=== PATIENT | male | born 1970 | race Caucasian/White ===

== ENCOUNTER 2019-08-21 22:13 | Emergency (ER) | payer OTHER ==
[2019-08-21] MEDS ORDERED: LIDOCAINE 1% INJ 10MG/ML (20 ML MDV) SQ ONE (23:21)
--- NOTE | 2019-08-21 23:27 | ED ---
Wound/Laceration HPI - General Chief Complaint: Wound/Laceration Stated Complaint: Thumb Lac Time Seen by Provider: 08/21/19 23:16 Source: patient, RN notes reviewed Mode of arrival: ambulatory Limitations: no limitations - History of Present Illness Initial Comments: this a 48-year-old male presents emergency Department chief complaint of left thumb partial amputation. Patient states that yesterday he was shooting Tiffanie Ryder states that he stuck his thumb up in the way. Patient states that he is missing the distal tip of his left thumb. He was seen at [facility] yesterday. patient states that he had x-rays, given antibiotics. Patient states that he is scheduled see orthopedics tomorrow. Patient states days had a slight continues bleed and he is concerned about it. - Related Data Home Medications Medication Instructions Recorded Confirmed Cephalexin [Keflex] 500 mg PO Q6H 08/21/19 08/21/19 HYDROcodone/APAP 5-325MG [[place] 1 tab PO Q4HR PRN 08/21/19 08/21/19 5-325] Ibuprofen [Motrin Ib] 400 mg PO Q6H PRN 08/21/19 08/21/19 Allergies Allergy/AdvReac Type Severity Reaction Status Date / Time No Known Allergies Allergy Verified 08/21/19 23:33 Review of Systems ROS Statement: Those systems with pertinent positive or pertinent negative responses have been documented in the HPI. ROS Other: All systems not noted in ROS Statement are negative. Past Medical History Past Medical History: GERD/Reflux History of Any Multi-Drug Resistant Organisms: None Reported Past Surgical History: Hernia Repair Past Psychological History: No Psychological Hx Reported Smoking Status: Current every day smoker Past Alcohol Use History: None Reported Past Drug Use History: None Reported General Exam Limitations: no limitations General appearance: alert, in no apparent distress Head exam: Present: atraumatic, normocephalic, normal inspection Eye exam: Present: normal appearance, PERRL, EOMI. Absent: scleral icterus, conjunctival injection, periorbital swelling Respiratory exam: Present: normal lung sounds bilaterally. Absent: respiratory distress, wheezes, rales, rhonchi, stridor Cardiovascular Exam: Present: regular rate, normal rhythm, normal heart sounds. Absent: systolic murmur, diastolic murmur, rubs, gallop, clicks Extremities exam: Present: other Skin exam: Present: warm, dry Course Vital Signs 08/21/19 22:17 Temperature 98.4 F Pulse Rate 97 Respiratory 20 Rate Blood Pressure 172/97 O2 Sat by Pulse 96 Oximetry Procedures - Procedures Initial comment: digital block left thumb 10 mL of lidocaine without epinephrine were used, dressing was removed, there is no active bleeding area was cleaned, Vaseline gauze, sterile gauze were applied, tube gauze applied over patient will be discharged Medical Decision Making - Medical Decision Making the wound was visualized, there is a partial amputation, no active bleeding no signs of infection. Dressing was changed and will follow-up with orthopedics tomorrow at scheduled appointment. Disposition Clinical Impression: Partial traumatic transphalangeal amputation of left thumb Disposition: HOME SELF-CARE Condition: Stable Instructions (If sedation given, give patient instructions): Finger Amputation (ED) Additional Instructions: Please return to the Emergency Department if symptoms worsen or any other concerns. Is patient prescribed a controlled substance at d/c from ED?: No Referrals: Kenrick Long MD [Primary Care Provider] - 1-2 days Kirk Roberto DO [Doctor of Osteopathic Medicine] - 1-2 days Time of Disposition: 00:02
[2019-08-22 00:27] VITALS: BP 162/108; PULSE 76; RESP 18; TEMP 98.5
== END 2019-08-22 00:27 | disposition home or self-care (01) ==
LOC: EC 22:13
DX: S68.522A Partial traumatic transphalangeal amputation of left thumb, initial encounter (principal); K21.9 Gastro-esophageal reflux disease without esophagitis; F17.200 Nicotine dependence, unspecified, uncomplicated; X58.XXXA Exposure to other specified factors, initial encounter; Y92.89 Other specified places as the place of occurrence of the external cause
CPT/HCPCS: 99282; 64450; J2001

== ENCOUNTER 2019-08-28 07:58 | Day surgery (SDC) | payer BC ==
[2019-08-27 10:28] VITALS: BMI 33.9
[~2019-08-28 07:58] MED LIST: DEXAMETHASONE SOD PHOSPHATE 10 MG/ML 1 ML VIAL IV ONE; HYDROmorphone 0.5 MG/0.5 ML SYRINGE IVP PRN; LACTATED RINGERS 1,000 ML IV SCH; LIDOCAINE 1% 20 ML VIAL (10MG/ML) FOR IV START INTRADERMA PRN; MIDAZOLAM 2 MG/2 ML VIAL IV PRN; ONDANSETRON 4 MG/2 ML VIAL IVP ONE; SCOPOLAMINE 1.5MG/72HR PATCH TRANSDERM ONE
[2019-08-28 08:23] VITALS: RESP 16; TEMP 97.5
[2019-08-28] MEDS ORDERED: MIDAZOLAM 2 MG/2 ML VIAL IV ONE (08:38)
--- NOTE | 2019-08-28 09:10 | P.ANPRN ---
Procedure Note - Anesthesia - Nerve Block Performed Left Supraclavicular Single Time Out Performed: Yes Date of Procedure: 08/28/19 Procedure Start Time: 08:37 Procedure Stop Time: 08:47 Location of Patient Procedure: PreOp Indication: Acute Post-Operative Pain, Requested by Surgeon Sedation Type: Sedate with meaningful contact maintained Preparation: Sterile Prep Position: Sitting Catheter: None Needle Types: Pajunk Ultrasound used to visualize needle placement: Yes Ultrasound used to observe medication spread: Yes Injectate: 0.5% Ropivacaine (see comment for volume) (20ml + decadron 4mg) Blood Aspirated: No Pain Paresthesia on Injection Noted: No Resistance on Injection: Normal Image Stored and Saved: Yes Events: Uneventful and Well Tolerated
[2019-08-28] MEDS ORDERED: BUPIVACAINE (PF) 0.5% 30 ML VIAL SQ ONE ×3 (10:26)
[2019-08-28] MEDS ORDERED: LIDOCAINE 1% INJ 10MG/ML (20 ML MDV) SQ ONE ×3 (10:26)
[2019-08-28] MEDS ORDERED: LACTATED RINGERS 1,000 ML IV ONE (11:58)
[2019-08-28] MEDS ORDERED: LIDOCAINE 1%-EPI 1:100,000 20 ML VIAL SQ ONE ×2 (12:56)
[2019-08-28 14:21] VITALS: BP 110/75; PULSE 95
--- NOTE | 2019-09-05 20:22 | P.OP ---
Date of Procedure: 08/28/19 Preoperative Diagnosis: 1. Traumatic transphalangeal amputation of the left thumb. Postoperative Diagnosis: 1. Traumatic transphalangeal amputation of the left thumb. 2. Intra-articular fracture of the radial condyle of the left thumb distal phalanx. Procedure(s) Performed: 1. Irrigation and debridement of traumatic amputation of the left thumb 2. Repair of left thumb interphalangeal joint radial collateral ligament / radial condyle fracture 3. Nailbed ablation - left thumb 4. Wound closure with first dorsal metacarpal artery flap 5. Full-thickness skin grafting of the donor site. Anesthesia: GETA (general), regional, local Surgeon: Devonte Zhang Buckle Attacher #1: Suzy Thompson Estimated Blood Loss (ml): 30 Condition: stable Disposition: PACU Indications for Procedure: The patient is a 48-year-old [id number] male who sustained a traumatic amputation to his left thumb at the level of the distal phalanx, secondary to an injury with his crossbow. Treatment options (and associated risks and benefits) were discussed in the office. Operative treatment was recommended, in the form of irrigation and debridement with flap coverage. I specifically discussed the risk of flap failure/necrosis (increased his case, being a current smoker) as well as infection and delayed wound healing. The patient expressed understanding, acceptance of these risks and wished to proceed with surgery. In preop, the patient denied any additional questions or concerns. Consent forms were signed. The operative site was confirmed and marked. Description of Procedure: The patient was administered a regional nerve block by the anesthesia team and then was brought to the operating suite and positioned supine with the operative limb on a hand table. All bony prominences were well-padded. Anesthesia was administered uneventfully. Prophylactic IV antibiotics were administered. A tourniquet was placed on the operative arm but was not initially inflated. The left upper extremity was then prepped and draped in standard, sterile fashion. A timeout was performed, confirming patient identifiers, the operative side, the site and the procedures to be performed: all team members expressed agreement. The course of the first dorsal metacarpal artery was identified by Doppler and marked on the skin. The island skin flap was outlined on the dorsal aspect of the index finger proximal phalanx. A lazy S-shaped incision was drawn along the course of the vascular pedicle. The limb was exsanguinated with an Esmarch and the tourniquet was inflated. The amputation site was explored. There is no gross contamination or foreign debris. A small fracture involving the insertion of the radial collateral ligament was identified. The end of the bone and the subcutaneous tissues of the pulp were mechanically debrided with curettes and rongeurs. The wound was copiously irrigated with normal saline. The majority of the bone of the distal phalanx had been amputated. There was no sterile matrix tissue and only a tiny amount of germinal matrix remaining. To prevent nail horns or aberrant nail growth, the remaining nailbed was ablated with electrocautery. The condyle fracture with the attached collateral insertion was repaired through bone tunnels using 4-0 FiberWire suture. Attention was then turned to the flap. The skin island was sharply incised, and the skin incision was extended along the vascular pedicle. The flap was sharply dissected off the extensor paratenon and raised [id number] to the pivot point at the base of the second metacarpal. A subcutaneous tunnel was created on the dorsoulnar aspect of the thumb. The island flap along with its vascular pedicle was rotated and passed through the tunnel and placed over the end of the thumb. At this point, the tourniquet was released (after 77 minutes at 250 mmHg) and not used for the remainder of the case. The flap showed quick return of capillary refill and appropriate bleeding from the skin edges. Excellent flow through the artery at the pivot point was confirmed with the Doppler. The traumatized skin at the amputation site was sharply revised. The margins of both the flap and thumb skin edges were contoured. The flap was loosely sewn in place with interrupted 5-0 nylon sutures. Electrocautery was used to establish meticulous hemostasis at the harvest site to prevent hematoma. The wound was copiously irrigated with normal saline. The S-shaped incision was closed primarily with interrupted 4-0 nylon sutures. The defect from the skin island measured approximately 2.5 cm x 3 cm. A 3 cm x 4 cm full-thickness skin graft was designed in the antecubital fossa. This was harvested sharply and defatted. The skin graft covered the defect completely, without tension. This was sutured in place with interrupted 5-0 nylon sutures. Two small stab incisions were made in the center of the graft to allow for drainage. A bolster was made from a surgical sponge soaked in Betadine and covered and Adaptic. The bolster was tied over the skin graft with 4-0 nylon sutures. The skin graft harvest site was irrigated and closed primarily with interrupted 3-0 nylon sutures. This did close completely but under some tension, requiring slight elbow flexion. Local anesthetic without epinephrine was injected in a partial wrist block, covering the radial and median distributions. Local anesthetic with epinephrine was injected around the skin graft harvest site. Soft, sterile dressings were applied. A plaster thumb spica splint was applied to the hand and a posterior long-arm plaster splint was applied to the elbow. All sponge, needle and instrument counts were correct at the end of the case. The patient tolerated the procedure well. He was awakened uneventfully and taken to recovery in stable condition.
== END 2019-08-28 14:42 | disposition home or self-care (01) ==
LOC: OR 07:58
PROVIDERS: ATTEND Orthopaedic Surgery
DX: S68.522A Partial traumatic transphalangeal amputation of left thumb, initial encounter (principal); X58.XXXA Exposure to other specified factors, initial encounter; I10 Essential (primary) hypertension; Z87.11 Personal history of peptic ulcer disease; F17.210 Nicotine dependence, cigarettes, uncomplicated; Z79.891 Long term (current) use of opiate analgesic; Z79.899 Other long term (current) drug therapy
CPT/HCPCS: 14040; 64415; 76942; J2250; J1100; J0690; J2405; J2001; 64413